=== PATIENT | female | born 1970 | race Caucasian/White ===

== ENCOUNTER 2017-05-31 17:14 | Emergency (ER) | payer OTHER ==
[~2017-05-31] VITALS: Wt 80.0 kg
[~2017-05-31 17:14] MED LIST: PT DENIES; WARF5TAB72 PO
[2017-05-31 17:21] VITALS: Wt 80.0 kg
--- NOTE | 2017-05-31 20:44 | ERD ---
ER Documentation Chief Complaint Chief Complaint ANXIETY ATTACK, HYPERVENTILATING, HAD ARGUMENT WITH SON, REPORTED HEMATURIA HPI This is a 46-year-old female with a history of breast cancer status post lumpectomy, previous left upper extremity DVT on Coumadin in the past, now only taking aspirin who is presenting with concerns of UTI as well as an anxiety attack. The patient has had several days of suprapubic discomfort with dysuria and a burning sensation when she urinates. She believes that she has a urinary tract infection. She also came to the emergency department after a reported anxiety attack. She was having a significant argument with her son when she started to feel palpitations, extreme anxiety and tingling in her face and hands bilaterally. The patient reports that this happened once before, also with a significant stressor. The patient's symptoms resolved shortly after arrival to the emergency department. The patient does not endorse chest pain or shortness of breath or lightheadedness or dizziness or diaphoresis. The patient denies feeling sick recently. The patient denies fever or chills. The patient has had no headache or vision changes. The patient does not endorse neck or back pain. The patient denies nausea or vomiting. The patient denies changes to bowel movements. The patient has had no focal deficits. The patient has had no weakness or numbness or tingling to the face or extremities. ROS All systems reviewed and are negative except as per history of present illness. Medications Home Meds Reported Medications Aspirin* (Aspirin* EC) 81 Mg Tablet.dr, 81 MG PO DAILY, TAB 05/31/17 Discontinued Reported Medications Warfarin Sodium* (Coumadin*) 5 Mg Tablet, 5 MG PO DAILY, TAB 12/19/13 [Pt Denies] No Conflict Check 11/29/10 Allergies Allergies: Coded Allergies: No Known Drug Allergies (Verified Allergy, Mild, 05/31/17) PMhx/Soc History of Surgery: Yes (LT BREAST LUMPECTOMY 2003,HYSTERECTOMY 2006) Anesthesia Reaction: No Hx Neurological Disorder: No Hx Respiratory Disorders: No Hx Cardiac Disorders: Yes (HX LT ARM DVT 04/2013) Hx Psychiatric Problems: No Hx Miscellaneous Medical Probl: Yes (Left breast CA, previous UTI) Hx Alcohol Use: No Hx Substance Use: No Hx Tobacco Use: No FmHx Family History: No coronary disease, No diabetes Physical Exam Vitals Vital Signs Date Time Temp Pulse Resp B/P Pulse Ox O2 Delivery O2 Flow Rate FiO2 05/31/17 17:21 98.1 145 32 141/87 99 Physical Exam Const: No apparent distress, well-developed, well-nourished Head: Normocephalic, Atraumatic Eyes: Normal Conjunctiva. Extraocular movements intact. Pupils equal, round and reactive to light ENT: Normal External Ears, Nose and Mouth. Neck: Full range of motion. No meningismus. Resp: Clear to auscultation bilaterally, No wheezes, rales or rhonchi Cardio: Regular rate and rhythm. No murmurs, rubs or gallops Abd: Suprapubic tenderness. Soft, non distended. Normal bowel sounds Skin: No petechiae or rashes Back: No midline tenderness. No CVA tenderness Ext: No cyanosis, or edema Neur: Awake and alert, oriented 4. Cranial nerves intact. No facial droop. Normal strength, sensation and coordination. Psych: Normal Mood and Affect, no longer anxious. Result Diagram: 05/31/17204405/31/172044 Results 24 hrs Laboratory Tests Test 05/31/17 20:45 White Blood Count 14.310^3/ul Red Blood Count 4.7010^6/ul Hemoglobin 13.1g/dl Hematocrit 39.7% Mean Corpuscular Volume 84.5fl Mean Corpuscular Hemoglobin 27.9pg Mean Corpuscular Hemoglobin Concent 33.0g/dl Red Cell Distribution Width 13.2% Platelet Count 62903^3/UL Mean Platelet Volume 10.3fl Neutrophils % 79.7% Lymphocytes % 15.2% Monocytes % 4.3% Eosinophils % 0.1% Basophils % 0.4% Nucleated Red Blood Cells % 0.0/100WBC Neutrophils # 11.410^3/ul Lymphocytes # 2.210^3/ul Monocytes # 0.610^3/ul Eosinophils # 0.010^3/ul Basophils # 0.110^3/ul Nucleated Red Blood Cells # 0.010^3/ul Urine Color YELLOW Urine Clarity SLIGHTLY CLOUDY Urine pH 7.0 Urine Specific [place] 1.009 Urine Ketones 1+mg/dL Urine Nitrite NEGATIVEmg/dL Urine Bilirubin NEGATIVEmg/dL Urine Urobilinogen NEGATIVEmg/dL Urine Leukocyte Esterase 3+Ian/ul Urine Microscopic RBC 120/HPF Urine Microscopic WBC > 182/HPF Urine Squamous Epithelial Cells FEW/HPF Urine Transitional Epithelial Cells FEW/HPF Urine Bacteria FEW/HPF Urine Hemoglobin 3+mg/dL Urine Glucose NEGATIVEmg/dL Urine Total Protein 2+mg/dl Sodium Level 141mmol/L Potassium Level 3.3mmol/L Chloride Level 101mmol/L Carbon Dioxide Level 29mmol/L Anion Gap 14 Blood Urea Nitrogen 8mg/dl Creatinine 0.73mg/dl Glucose Level 108mg/dl Calcium Level 9.3mg/dl Troponin I < 0.012ng/ml Current Medications Medications (Trade) Dose Ordered Sig/Jacqueline Route PRN Reason Start Time Stop Time Status Last Admin Dose Admin Ceftriaxone Sodium (Rocephin) 50 ml @ 100 mls/hr ONCE ONCE IVPB 05/31/17 23:00 05/31/17 23:29 05/31/17 22:46 Procedures/MDM MDM The patient's presentation warrants further investigation. The patient's presentation is concerning for an anxiety attack. That said, a cardiac workup will also be performed. We also evaluate for urinary tract infection. LABS The patient's blood work was obtained and reviewed. The patient's CBC shows a mild leukocytosis and left shift. That said, the patient is afebrile and does not appear systemically ill. I do not suspect a systemic infection. The patient is not anemic today. The patient's platelet count is unremarkable. The patient's BMP shows no signs of metabolic or electrolyte emergencies. She has a mild hypokalemia that does not need to be emergently treated. The patient has unremarkable renal function testing. The patient's troponin is negative. EKG EKG read by me: Rate/Rhythm: Regular rate and rhythm at a rate of 119 bpm Intervals: Normal [place]: Normal Impression: Nonspecific repolarization changes, but no evidence of ischemia or arrhythmia IMAGING CXR FINDINGS: The cardiomediastinal silhouette is unremarkable. There is no congestive heart failure.. No focal infiltrate is seen. There is no pleural effusion. There is no pneumothorax. The osseous structures are unremarkable. There are left axial surgical clips. IMPRESSION: No acute abnormality. Electronically viewed and signed by .Franklin Manning MD, MD on 05/31/2017 21:38 TREATMENT/DISPOSITION The patient has a urinary tract infection. She was given Rocephin in the emergency department. She was sent home with a prescription for Keflex. A urine culture will be sent off for further analysis. With respect to the patient's anxious symptoms, I do feel that it was associated with anxiety. The patient does not endorse any chest pain. The patient's HEART score is less than or equal to 3 for age, risk factors and nonspecific EKG changes. The patient's troponin is reassuring. She was initially tachycardic, but this completely resolved after she had a chance to calm down. This stratifies the patient into the low risk (<1%) group for an major adverse cardiac event within the next 30 days. I have low suspicion for acute coronary syndrome. The patient's chest xray does not reveal pneumonia or pneumothorax or pleural effusions or pulmonary edema. She does not have a widened mediastinum and does not have signs or symptoms concerning for thoracic aortic aneurysm or dissection. She does not have pneumomediastinum or signs concerning for esophageal tear or rupture. She has no clinical or radiographic signs of paricardial effusion or tamponade. She does not have pneumoperitoneum and I have decreased suspicion of viscus perforation and a possibility of referred pain. The patient does not have a history of heart failure and I have low suspicion for this. The patient does not have a diagnosis of COPD and is not wheezing today. I have low suspicion for PE. She is no tachypneic or hypoxic. She is breathing comfortably and without pleuritc pain. Her heart rate is unremarkable at this time. She is not on hormonal therapy. She has no calf tenderness. She has had no hemoptysis. Shared decision making was enacted. The risks and benefits of admission and discharge were discussed with the patient and it was ultimately decided that the patient would be discharged with close outpatient follow up and evaluationg for functional testing within 72 hours. At this time, I feel that the patient stable for discharge. The patient will need follow-up with his primary care physician in 2-3 days. The patient will be given strict precautions with which to return to the emergency department. The patient's blood pressure was elevated at greater than 120/80 while in the emergency department. The patient was otherwise stable with no evidence of hypertensive urgency or emergency or end organ damage. The patient does not require admission for blood pressure control. I have discussed with the patient the risks of hypertension. I have advised the patient to follow up with the primary care physician for outpatient monitoring and treatment for hypertension in 2-3 days. I have instructed the patient to return to the ER for any new or worsening symptoms including chest pain, shortness of breath, headache, blurred vision, confusion, nausea, vomiting or LOC. Disclaimer: Inadvertent spelling and grammatical errors are likely due to EHR/ dictation software use and do not reflect on the overall quality of patient care. Note that the electronic time recorded on this note does not necessarily reflect the actual time of the patient encounter. Departure Diagnosis: Primary Impression: UTI (urinary tract infection) Urinary tract infection type: acute cystitis Hematuria presence: with hematuria Qualified Code: N30.01 - Acute cystitis with hematuria Additional Impressions: Hypokalemia Anxiety Leukocytosis Leukocytosis type: unspecified Qualified Code: D72.829 - Leukocytosis, unspecified type Condition: MAMI Blas MD May 31, 2017 20:44
[2017-05-31 20:57] LABS: BASOPHIL # 0.1 10^3/ul (0.0-0.1); BASOPHILS % 0.4 % (0.0-2.0); EOSINOPHILS % 0.1 % (0.0-7.0); HEMATOCRIT 39.7 % (37.0-47.0); HEMOGLOBIN 13.1 g/dl (12.0-16.0); LYMPHOCYTES # 2.2 10^3/ul (0.8-2.9); LYMPHOCYTES % 15.2 % (15.0-51.0); MEAN CORPUSCULAR HEMOGLOBIN 27.9 pg (29.0-33.0); MEAN CORPUSCULAR VOLUME 84.5 fl (82.0-101.0); MEAN PLATELET VOLUME 10.3 fl (7.4-10.4); MONOCYTE # 0.6 10^3/ul (0.3-0.9); MONOCYTES % 4.3 % (0.0-11.0); NEUTROPHIL # 11.4 10^3/ul (1.6-7.5); NEUTROPHILS % 79.7 % (39.0-77.0); PLATELET COUNT 249 10^3/UL (140-415); RED CELL DISTRIBUTION WIDTH 13.2 % (11.5-14.5); WHITE BLOOD COUNT 14.3 10^3/ul (4.8-10.8)
[2017-05-31] MEDS ORDERED: ASPI-664 PO (21:23)
[2017-05-31 21:26] LABS: ANION GAP 14 (8-16); BLOOD UREA NITROGEN 8 mg/dl (7-20); CALCIUM 9.3 mg/dl (8.4-10.2); CARBON DIOXIDE 29 mmol/L (21-31); CHLORIDE 101 mmol/L (97-110); CREATININE 0.73 mg/dl (0.44-1.00); GLUCOSE 108 mg/dl (70-220); POTASSIUM 3.3 mmol/L (3.5-5.1); SODIUM 141 mmol/L (135-144)
--- NOTE | 2017-05-31 21:38 | RADRPT ---
PROCEDURE: XR Chest. CLINICAL INDICATION: Chest pain. TECHNIQUE: Single frontal chest x-ray. COMPARISON: CT chest 10/23/2013 FINDINGS: The cardiomediastinal silhouette is unremarkable. There is no congestive heart failure.. No focal i nfiltrate is seen. There is no pleural effusion. There is no pneumothorax. The osseous structures are unremarkable. There are left axial surgical clips. IMPRESSION: No acute abnormality. RPTAT: HMVK .Franklin Manning MD, MD Date Time Electronically viewed and signed by .Franklin Manning MD, on 05/31/2017 21:38 .K/
[2017-05-31 21:42] LABS: TROPONIN-I < 0.012 ng/ml (0.00-0.12)
[2017-05-31 22:37] LABS: ADD UMIC YES; UR ASCORBIC ACID NEGATIVE (NEGATIVE); UR BACTERIA FEW /HPF (NONE SEEN); UR BILIRUBIN (Dip) NEGATIVE (NEGATIVE); UR BLOOD (Dip) 3+ mg/dL (NEGATIVE); UR CLARITY SLIGHTLY CLOUDY (CLEAR); UR COLOR YELLOW (YELLOW); UR GLUCOSE (Dip) NEGATIVE (NEGATIVE); UR KETONES (Dip) 1+ mg/dL (NEGATIVE); UR LEUKOCYTE ESTERASE (Dip) 3+ Leu/ul (NEGATIVE); UR NITRITE (Dip) NEGATIVE (NEGATIVE); UR RBC 120 /HPF (0-5); UR SPECIFIC GRAVITY (Dip) 1.009 (1.003-1.030); UR SQUAMOUS EPITHELIAL CELL FEW /HPF (FEW); UR TOTAL PROTEIN (Dip) 2+ mg/dl (NEGATIVE); UR TRANSITIONAL EPI CELL FEW /HPF (NONE SEEN); UR UROBILINOGEN (Dip) NEGATIVE (NEGATIVE)
[2017-05-31] MEDS ORDERED: CEFTRIAXONE 1 GM/50 ML (PMX) 50 ML IVPB ONE (23:00)
[2017-05-31 23:41] VITALS: BP 113/79; PULSE 78; RESP 18; TEMP 98
[2017-05-31] MEDS ORDERED: CEPH-443 PO (23:48)
== END 2017-05-31 23:54 | disposition home or self-care (01) ==
LOC: E/R 17:14
DX: N30.01 Acute cystitis with hematuria (principal); E87.6 Hypokalemia; D72.829 Elevated white blood cell count, unspecified; Z79.01 Long term (current) use of anticoagulants; Z79.82 Long term (current) use of aspirin; Z85.3 Personal history of malignant neoplasm of breast
CPT/HCPCS: 36415; 71010; 80048; 81001; 84484; 85025; 93005; 96374; 99285; J0696